=== PATIENT | male | born 2000 | race Caucasian/White ===

== ENCOUNTER 2019-06-08 10:52 | Emergency (ER) | payer OTHER ==
--- NOTE | 2019-06-08 11:07 | EDM.PDOC ---
ED HPI GENERAL MEDICAL PROBLEM - General Chief Complaint: Head Injury Stated Complaint: fall, hit head Time Seen by Provider: 06/08/19 11:07 Source of Information: Reports: Patient, Old Records (No [facility] records available) History Limitations: Reports: No Limitations - History of Present Illness INITIAL COMMENTS - FREE TEXT/NARRATIVE: The patient was brought to the emergency room via transport vehicle from [facility] for evaluation of a Workmen's Compensation injury, which occurred at about 10: 30 a.m. this morning. The patient was preparing to stand up from a squatting position hitting his right arm on the tool kit when he fell backwards for an unknown reason hitting the left side of his head with apparent brief period of loss of consciousness. He has not had a head concussion or similar injury in the past. The incidence was witnessed by 2 of his coworkers however specific details are not available at this time. No apparent history of seizure activity , stool/urine incontinence, etc. He does complain of 5/10 left lower neck muscular pain with history of previous intermittent neck pain in the past. He also complains of 2/10 left superior head discomfort from his head contusion with ice packs applied prior to arrival. He denies any right arm pain at this time. No history of recent headaches, visual changes, diplopia, change in mental status, paresthesias, neurological deficits, or other change in neurological status. The patient denies any chest pain/pressure, heart flutter, dizziness, orthostasis, orthopnea, diaphoresis, paresthesias, recent decreased exercise tolerance, or any other anginal-type symptoms. No recent history of abdominal pain, heartburn, nausea, diarrhea, melena, gross hematochezia, or any food intolerance, including fatty foods, etc.. The patient also denies any recent fever, cough, wheezing, dyspnea, etc.. Onset: Today, Sudden Onset Date: 06/08/19 Onset Time: 10:30 Duration: Constant Location: Reports: Head, Neck. Denies: Face, Chest, Abdomen, Back, Pelvis, Upper Extremity, Left, Upper Extremity, Right, Radiates to Quality: Reports: Ache, Same as Previous Episode Severity: Moderate Improves with: Reports: None Worsens with: Reports: None Context: Reports: Trauma (As above) Associated Symptoms: Denies: Confusion (No postictal sedation), Chest Pain, Cough, Diaphoresis, Fever/Chills, Headaches, Loss of Appetite, Malaise, Nausea/ Vomiting, Rash, Seizure, Shortness of Breath, Syncope, Weakness Treatments MANAGEMENT COORDINATOR: Reports: Cold Therapy Neck Pain Score (Numeric/FACES): 5 Left Posterior Head Pain Score (Numeric/FACES): 2 - Related Data Allergies Allergy/AdvReac Type Severity Reaction Status Date / Time No Known Allergies Allergy Verified 06/08/19 10:53 Home Meds: Home Meds Multivitamin [Multi-Vitamin Daily] 1 tab PO DAILY 06/08/19 [History] Past Medical History - Past Health History Medical/Surgical History: Denies Medical/Surgical History HEENT History: Reports: Impaired Vision, Other (See Below). Denies: Allergic Rhinitis, Hard of Hearing, Otitis Media Other HEENT History: Patient wears glasses Cardiovascular History: Reports: None. Denies: Arrhythmia, Hypertension, Syncope Respiratory History: Reports: None Musculoskeletal History: Reports: Arthritis, Neck Pain, Chronic. Denies: Fracture Neurological History: Reports: None. Denies: Concussion, Headaches, Chronic, Head Trauma, Migraines, Seizure, Vertigo - Past Surgical History HEENT Surgical History: Reports: None. Denies: Adenoidectomy, Myringotomy w Tube(s), Tonsillectomy Male Surgical History: Reports: None. Denies: Circumcision Social & Family History - Tobacco Use Smoking Status *Q: Never Smoker Tobacco Use Within Last Twelve Months: No Used Tobacco, but Quit: No Smoking Cessation Information Provided To Patient: No Second Hand Smoke Exposure: No Second Hand Smoke Education Provided: No - Living Situation & Occupation Living situation: Reports: Single, with Family (Parents) Occupation: Employed ([employer]) ED ROS GENERAL - Review of Systems Review Of Systems: ROS reveals no pertinent complaints other than HPI. ED EXAM, HEAD INJURY - Physical Exam Exam: See Below Exam Limited By: No Limitations General Appearance: Alert, WD/WN, No Apparent Distress Head: Normocephalic, Scalp Swelling (As below), Scalp Hematoma (For similar diameter mild subcutaneous hematoma over the superior left occipital region), Scalp Tenderness (Mild localized tenderness at site of hematoma with no crepitation, deformity, etc.). No: Scalp Lacerations, Scalp Abrasions, Scalp Ecchymosis, Garcia's Sign, Sinus Tenderness, Facial Tenderness, Raccoon Eyes Eyes: Bilateral Eye: EOMI, Normal Fundi, Normal Inspection (No nystagmus. Patient wearing prescription safety glasses), PERRL Ears: Normal External Exam, Normal Canal, Hearing Grossly Normal, Normal TMs Nose: Normal Inspection, Normal Mucousa, No Blood Throat/Mouth: Normal Inspection, Normal Lips, Normal Teeth (Lower retainer), Normal Gums, Normal Oropharynx, Normal Voice, No Airway Compromise Neck: Full Range of Motion, Normal Alignment, Tenderness (Left lower lateral cervicalmild). No: Muscle Spasm, Painful Range of Motion, Paraspinous Muscle Tender, Spinous Processes Tender Respiratory: No Respiratory Distress, Lungs Clear, Normal Breath Sounds, No Accessory Muscle Use, Chest Non-Tender. No: Pleural Rub, Retractions Cardiovascular: Normal Peripheral Pulses, Regular Rate, Rhythm, No Edema, No Gallop, No JVD, No Murmur, No Rub. No: Gallop/S3, Gallop/S4, Friction Rub GI/Abdominal Exam: Normal Bowel Sounds, Soft, Non-Tender, No Organomegaly, No Distention, No Abnormal Bruit, No Mass, Pelvis Stable. No: Guarding (Male) Exam: Deferred Rectal (Males) Exam: Deferred Back Exam: Normal Inspection, Full Range of Motion. No: CVA Tenderness (L), CVA Tenderness (R), Muscle Spasm Extremities: Normal Inspection, Normal Range of Motion, Non-Tender, No Pedal Edema, Normal Capillary Refill. 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 No evidence of facial paresis, tongue deviation, orthostasis, etc.. Excellent reverse thought processes.) Skin: Normal Color, Warm/Dry. No: Ecchymosis - [place] Coma Score Best Eye Response (Jarred): (4) Open Spontaneously Best Verbal Response ([place]): (5) Oriented Best Motor Response (Jarred): (6) Obeys Commands [place] Total: 15 Course - Vital Signs Last Recorded V/S: Last Vital Signs Temp 37.0 C 06/08/19 10:56 Pulse 86 06/08/19 10:56 Resp 18 06/08/19 10:56 BP 107/61 06/08/19 10:56 Pulse Ox 95 06/08/19 10:56 Vital Signs - 24 hr 06/08/19 10:56 Temperature [ 37.0 C Temporal] Pulse, 86 Peripheral [ Right Pulse Oximetry] Respiratory 18 Rate Blood Pressure 107/61 [Right Upper Arm] O2 Sat by Pulse 95 Oximetry - Orders/Labs/Meds Orders: Active Orders 24 hr Category Date Time Status Cervical Spine Min 4V [CR] Stat Exams 06/08/19 11:08 Ordered Skull Less 4V [CR] Stat Exams 06/08/19 11:08 Ordered Obtain Past Medical Record [OM.PC] Routine Oth 06/08/19 11:07 Active Labs: None Meds: None - Radiology Interpretation Free Text/Narrative:: X-rays of the skull, complete, shows no evidence of fracture, etc. X-rays of the cervical spine, including obliques, shows no gross abnormalities including fracture, dislocation, etc. No evidence of decreased lordosis. Odontoid view somewhat suboptimal however no obvious abnormality. Departure - Departure Time of Disposition: 11:55 Disposition: Home, Self-Care 01 Condition: Good Clinical Impression: Neck pain Head contusion Qualifiers: Encounter type: initial encounter Contusion of head detail: scalp Qualified Code(s): S00.03XA - Contusion of scalp, initial encounter - Discharge Information *PRESCRIPTION DRUG MONITORING PROGRAM REVIEWED*: Not Applicable *COPY OF PRESCRIPTION DRUG MONITORING REPORT IN PATIENT RAYRAY: Not Applicable Instructions: Head Injury, Adult, [id number], Cervical Sprain, [id number] Referrals: PCP,None [Primary Care Provider] - Forms: ED Department Discharge Additional Instructions: 1. Follow up with your regular provider in 10-14 days as needed, if symptoms persist. Bring these discharge instructions with you to that visit. 2. Tylenol 650 mg by mouth every 4 hours and/or OTC ibuprofen 2-3 tabs by mouth every 6 hours with food as directed./needed. You may stagger these medications for 48-72 hours only, which essentially means that you are receiving a pain medication about every 2 hours. 3. BenGay or equivalent, heating pad, and/or ice packs as directed. 4. Work excuse- See Form 5. Head precautions as directed-see form. 6. Immediately after this visit verify that your cellular telephone's voicemail has been activated and is empty. Also verify that your home telephone 's answering machine is operating properly and has space to receive messages. Note that it is sometimes necessary for us to be able to contact you at a later date to discuss your medical care. 7. Please remember that we are ALWAYS here for you and want to answer any questions you may have. Feel free to call the hospital any time and we call you back ANDRES. - Problem List & Annotations (1) Head contusion SNOMED Code(s): 001295353 Code(s): S00.93XA - CONTUSION OF UNSPECIFIED PART OF HEAD, INITIAL ENCOUNTER Status: Acute Priority: High Onset Date: 06/08/19 Annotation/Comment:: A trauma code was immediately considered in this patient secondary to the mechanism of injury, however based on the clinical presentation of the patient, previous history, etc. this provider did not feel that a trauma code would affect the patient's level of care and was not warranted. Minor head contusion with borderline concussion with no neurological deficits, etc. [place] work excuse and Workmen's Compensation forms were completed. Head precautions, etc. were given. Symptomatic relief for now as per discharge instructions. Qualifiers: Encounter type: initial encounter Contusion of head detail: scalp Qualified Code(s): S00.03XA - Contusion of scalp, initial encounter (2) Neck pain SNOMED Code(s): 49978880 Code(s): M54.2 - CERVICALGIA Status: Acute Priority: High Onset Date: 06/08/19 Annotation/Comment:: Mild cervical neck sprain with no significant muscle spasms by clinical exam at this time. Flexeril not indicated. Symptomatic relief as above. Previous history of intermittent neck pain as above. - Problem List Review Problem List Initiated/Reviewed/Updated: Yes - My Orders Last 24 Hours: My Active Orders 06/08/19 11:07 Obtain Past Medical Record [OM.PC] Routine 06/08/19 11:08 Cervical Spine Min 4V [CR] Stat Skull Less 4V [CR] Stat - Assessment/Plan Last 24 Hours: My Active Orders 06/08/19 11:07 Obtain Past Medical Record [OM.PC] Routine 06/08/19 11:08 Cervical Spine Min 4V [CR] Stat Skull Less 4V [CR] Stat Assessment:: As above Plan: As above. Extensive precautions were given to the patient, who is in agreement with the treatment plan. See Patient Instructions for further treatment and plan.
== END 2019-06-08 11:57 | disposition home or self-care (01) ==
LOC: LL.ED 10:52
DX: S00.03XA Contusion of scalp, initial encounter (principal); M54.2 Cervicalgia; W19.XXXA Unspecified fall, initial encounter
CPT/HCPCS: 70250; 72050; 99284-25

== ENCOUNTER 2019-10-22 17:05 | Emergency (ER) | payer BC ==
[2019-10-22] MEDS ORDERED: Famotidine 20 MG/2 ML SDV IVPUSH ONE (17:09)
[2019-10-22] MEDS ORDERED: Pantoprazole 40 MG Vial IVPUSH ONE (17:09)
[2019-10-22] MEDS ORDERED: Ondansetron 4 MG/2 ML SDV IVPUSH ONE (17:09)
--- NOTE | 2019-10-22 17:09 | EDM.PDOC ---
ED HPI GENERAL MEDICAL PROBLEM - General Chief Complaint: Abdominal Pain Stated Complaint: nausea, abd pain Time Seen by Provider: 10/22/19 17:05 Source of Information: Reports: Patient, Family (Mother), Old Records ([facility] EMR. No paper hospital chart available.) History Limitations: Reports: No Limitations - History of Present Illness INITIAL COMMENTS - FREE TEXT/NARRATIVE: Patient was brought to the emergency room via transport vehicle from [facility] for evaluation of 02/20 mid abdominal and epigastric abdominal cramping with symptoms starting at about 13:00 hours this afternoon. Note he did take Pepto- bismol about 10 minutes prior to arrival with some improvement of his symptoms. He did eat lunch without any problems earlier today with normal bowel movement at about 16:00 hours this afternoon. No recent history of diarrhea, melena, gross hematochezia, or any food intolerance, including fatty foods, etc.. He did have some mild nausea and one episode of emesis prior to arrival, however no history of gross hematuria, colic, or other UTI symptoms. The patient denies any chest pain/pressure, heart flutter, dizziness, orthostasis, orthopnea, diaphoresis, paresthesias, recent decreased exercise tolerance, or any other anginal-type symptoms. The patient also denies any recent cough, wheezing, dyspnea, etc. although a mild sore throat today with some fever and chills. Temperature was not measured with no recent use of antipyretic medication. Onset: Today, Gradual Onset Date: 10/22/19 Onset Time: 13:00 Duration: Constant, Improving Location: Reports: Abdomen. Denies: Head, Face, Neck, Chest, Back, Pelvis, Upper Extremity, Left, Upper Extremity, Right, Lower Extremity, Left, Lower Extremity, Right, Radiates to Quality: Reports: Sharp, Stabbing Severity: Moderate Improves with: Reports: Medication Worsens with: Reports: None Context: Reports: Other (As above). Denies: Sick Contact, Trauma Associated Symptoms: Reports: Fever/Chills, Nausea/Vomiting. Denies: Confusion , Chest Pain, Cough, Diaphoresis, Headaches, Loss of Appetite, Malaise, Rash, Seizure, Shortness of Breath, Syncope, Weakness Treatments DEVELOPMENTAL THERAPIST: Reports: Other Medication(s) (As above) Middle Abdominal Pain Score (Numeric/FACES): 7 - Related Data Allergies Allergy/AdvReac Type Severity Reaction Status Date / Time No Known Allergies Allergy Verified 10/22/19 17:09 Home Meds: Home Meds Multivitamin [Multi-Vitamin Daily] 1 tab PO DAILY 06/08/19 [History] Bismuth Subsalicylate [Pepto-Bismol] 1 dose PO ONETIME 10/22/19 [History] Past Medical History HEENT History: Reports: Impaired Vision, Other (See Below). Denies: Allergic Rhinitis, Hard of Hearing, Otitis Media Other HEENT History: Patient wears glasses Cardiovascular History: Reports: None. Denies: Arrhythmia, Hypertension, Syncope Respiratory History: Reports: None. Denies: Asthma, COPD Musculoskeletal History: Reports: Arthritis, Neck Pain, Chronic. Denies: Fracture Neurological History: Reports: None. Denies: Concussion, Headaches, Chronic, Head Trauma, Migraines, Seizure, Vertigo - Past Surgical History Head Surgeries/Procedures: Reports: None HEENT Surgical History: Reports: None. Denies: Adenoidectomy, Myringotomy w Tube(s), Oral Surgery, Tonsillectomy Cardiovascular Surgical History: Reports: None Respiratory Surgical History: Reports: None GI Surgical History: Reports: None. Denies: Appendectomy, Cholecystectomy, Colonoscopy, EGD, Hernia, Inguinal, Hernia Repair/Other Male Surgical History: Reports: None. Denies: Circumcision, Vasectomy Endocrine Surgical History: Reports: None Neurological Surgical History: Reports: None Musculoskeletal Surgical History: Reports: None Oncologic Surgical History: Reports: None Dermatological Surgical History: Reports: Other (See Below) Other Dermatological Surgeries/Procedures: Skin lesion taken from digit #4 of the left hand in [address] [place] [id number]. Social & Family History - Tobacco Use Smoking Status *Q: Never Smoker Tobacco Use Within Last Twelve Months: No Used Tobacco, but Quit: No Smoking Cessation Information Provided To Patient: No Second Hand Smoke Exposure: No Second Hand Smoke Education Provided: No - Alcohol Use Alcohol Use History: No Days Per Week of Alcohol Use: 0 Number of Drinks Per Day: 0 Number of Drinks Per Day Comment: No previous DWIs, problems with alcohol abuse , etc. 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 ED EXAM, GI/ABD - Physical Exam Exam: See Below Exam Limited By: No Limitations General Appearance: Alert, WD/WN, No Apparent Distress, Anxious (Mild) Eyes: Bilateral: Normal Appearance (No nystagmus), EOMI (PERRLA) Ears: Normal External Exam, Normal Canal, Hearing Grossly Normal, Normal TMs Nose: Normal Inspection, Normal Mucosa, No Blood Throat/Mouth: Normal Inspection, Normal Lips, Normal Teeth, Normal Gums, No Airway Compromise. No: Normal Oropharynx (Trace erythema in the posterior pharynx), Dysphagia, Inflammation, Perioral Cyanosis Head: Atraumatic, Normocephalic. No: Facial Swelling, Facial Tenderness, Sinus Tenderness Neck: Normal Inspection, Supple, Non-Tender, Full Range of Motion. No: Lymphadenopathy (L), Lymphadenopathy (R), Thyromegaly Respiratory/Chest: No Respiratory Distress, Lungs Clear, Normal Breath Sounds, No Accessory Muscle Use, Chest Non-Tender Cardiovascular: Normal Peripheral Pulses, Regular Rate, Rhythm, No Edema, No Gallop, No JVD, No Murmur, No Rub. No: Gallop/S3, Gallop/S4, Friction Rub GI/Abdominal Exam: No Organomegaly, No Distention, No Abnormal Bruit, No Mass, Pelvis Stable, Tender (Minimal mid abdominal palpation pain), Abnormal Bowel Sounds (Mild to moderate diffuse increased bowel sounds [id number] in nature). No: Guarding, Rigid, Rebound (Male) Exam: Deferred Rectal (Males) Exam: Deferred Back Exam: Normal Inspection, Full Range of Motion. No: CVA Tenderness (L), CVA Tenderness (R), Muscle Spasm Extremities: Normal Inspection, Normal Range of Motion, Non-Tender, No Pedal Edema, Normal Capillary Refill. No: Ivett's Sign Neurological: Alert, Oriented, CN II-XII Intact, Normal Cognition, Normal Gait, Normal Reflexes (Negative Babinski's), No Motor/Sensory Deficits Psychiatric: Anxious (Mild), Depressed Mood (Borderline) Skin Exam: Warm, Dry, Intact, Normal Color, No Rash. No: Diaphoretic, Ecchymosis, Jaundice, Pallor, Petechiae, Wound/Incision Lymphatic: No Adenopathy Course - Vital Signs Last Recorded V/S: Last Vital Signs Temp 37.1 C 10/22/19 19:18 Pulse 74 10/22/19 20:05 Resp 16 10/22/19 20:05 BP 119/66 10/22/19 20:05 Pulse Ox 99 10/22/19 20:05 Vital Signs - 24 hr 10/22/19 10/22/19 10/22/19 17:07 17:18 17:33 Temperature [ 37.3 C Temporal] Pulse, 74 79 74 Peripheral [ Left Pulse Oximetry] Respiratory 20 Rate Blood Pressure 135/81 120/68 119/66 [Left Upper Arm ] O2 Sat by Pulse 97 97 98 Oximetry 10/22/19 10/22/19 10/22/19 17:48 18:04 18:18 Temperature [ Temporal] Pulse, 72 70 74 Peripheral [ Left Pulse Oximetry] Respiratory Rate Blood Pressure 108/72 108/63 125/77 [Left Upper Arm ] O2 Sat by Pulse 98 98 100 Oximetry 10/22/19 10/22/19 10/22/19 18:33 18:48 19:03 Temperature [ Temporal] Pulse, 74 72 77 Peripheral [ Left Pulse Oximetry] Respiratory Rate Blood Pressure 117/71 121/66 111/68 [Left Upper Arm ] O2 Sat by Pulse 100 99 99 Oximetry 10/22/19 10/22/19 10/22/19 19:18 19:35 19:40 Temperature [ 37.1 C Temporal] Pulse, 75 76 77 Peripheral [ Left Pulse Oximetry] Respiratory 18 18 16 Rate Blood Pressure 114/72 119/72 128/78 [Left Upper Arm ] O2 Sat by Pulse 99 100 99 Oximetry 10/22/19 20:05 Temperature [ Temporal] Pulse, 74 Peripheral [ Left Pulse Oximetry] Respiratory 16 Rate Blood Pressure 119/66 [Left Upper Arm ] O2 Sat by Pulse 99 Oximetry - Orders/Labs/Meds Orders: Active Orders 24 hr Category Date Time Status Communication Order [RC] ROUTINE Care 10/22/19 20:18 Ordered Peripheral IV Care [RC] . DIRECTED Care 10/22/19 17:10 Active Nothing Per Oral Diet [DIET] Diet 10/22/19 Breakfast Active Abdomen Pelvis w Cont [CT] Stat Exams 10/22/19 17:50 Stop Req Abdomen Pelvis wo Cont [CT] Stat Exams 10/22/19 18:30 Ordered Abdomen Series w Chest 1V [CR] Stat Exams 10/22/19 17:09 Taken CULTURE STREP A CONFIRMATION [RM] Stat Lab 10/22/19 17:15 Results CULTURE URINE [RM] Stat Lab 10/22/19 18:14 Received STREP SCRN A RAPID W CULT CONF [RM] Stat Lab 10/22/19 17:15 Results Sodium Chloride 0.9% [Saline Flush] Med 10/22/19 17:09 Active 10 ml FLUSH ASDIRECTED PRN Isolation [COMM] Routine Oth 10/22/19 17:11 Active Obtain Past Medical Record [OM.PC] Urgent Oth 10/22/19 17:09 Active Peripheral IV Insertion Adult [OM.PC] Stat Oth 10/22/19 17:09 Ordered Resuscitation Status Stat Resus Stat 10/22/19 17:09 Ordered Medication Orders Sodium Chloride (Saline Flush) 10 ml FLUSH ASDIRECTED PRN PRN Reason: Keep Vein Open Last Admin: 10/22/19 20:08 Dose: 10 ml Admin: 10/22/19 18:47 Dose: 10 ml Admin: 10/22/19 17:26 Dose: 10 ml Labs: Laboratory Tests 10/22/19 10/22/19 10/22/19 Range/Units 17:15 17:15 17:15 WBC 11.0 H (4.0-10.2) K/uL RBC 5.49 H (4.33-5.41) M/uL Hgb 16.0 (13.1-16.8) g/dL Hct 46.8 (39.0-49.0) % MCV 85.2 (84.0-98.0) fL MCH 29.1 (28.2-33.3) pg MCHC 34.2 (31.7-36.0) g/dL RDW 13.0 (11.2-14.1) % Plt Count 183 (150-350) K/uL Neut % (Auto) 79.5 (45.0-80.0) % Lymph % (Auto) 12.4 (10.0-50.0) % [place] % (Auto) 7.6 (2.0-14.0) % Eos % (Auto) 0.3 (0.0-5.0) % Baso % (Auto) 0.2 (0.0-2.0) % Neut # (Auto) 8.76 H (1.40-7.00) K/uL Lymph # (Auto) 1.37 (0.50-3.50) K/uL [place] # (Auto) 0.84 (0.00-1.00) K/uL Eos # (Auto) 0.03 (0.00-0.50) K/uL Baso # (Auto) 0.02 (0.00-0.20) K/uL PT 10.7 (9.5-12.0) SEC INR 1.1 APTT 25.0 (24.5-32.8) SEC Sodium (136-145) mmol/L Potassium (3.5-5.1) mmol/L Chloride (98-107) mmol/L Carbon Dioxide (21.0-32.0) mmol/L BUN (7-18) mg/dL Creatinine (0.51-1.17) mg/dL Est Cr Clr Drug Dosing mL/min Estimated GFR (MDRD) mL/min Glucose (74-106) mg/dL Lactic Acid (0.4-2.0) mmol/L Uric Acid (2.6-7.2) mg/dL Calcium (8.5-10.1) mg/dL Magnesium (1.8-2.4) mg/dL Total Bilirubin (0.2-1.0) mg/dL AST (15-37) U/L ALT (12-78) U/L Alkaline Phosphatase (46-116) IU/L Total Protein (6.4-8.2) g/dL Albumin (3.4-5.0) g/dL Amylase 33 (25-115) U/L Lipase (73-393) U/L Specimen Type Urine Color Urine Appearance Urine pH (5.0-9.0) Ur Specific [place] (1.005-1.030) Urine Protein (NEGATIVE) mg/dL Urine Glucose (UA) (NEGATIVE) mg/dL Urine Ketones (NEGATIVE) mg/dL Urine Occult Blood (NEGATIVE) Urine Nitrite (NEGATIVE) Urine Bilirubin (NEGATIVE) Urine Urobilinogen (0.2-1.0) E.U./dL Ur Leukocyte Esterase (NEGATIVE) Urine RBC /HPF Urine WBC /HPF Ur Epithelial Cells /LPF Urine Bacteria (NONE TO FEW) /HPF 10/22/19 10/22/19 10/22/19 Range/Units 17:15 17:15 18:14 WBC (4.0-10.2) K/uL RBC (4.33-5.41) M/uL Hgb (13.1-16.8) g/dL Hct (39.0-49.0) % MCV (84.0-98.0) fL MCH (28.2-33.3) pg MCHC (31.7-36.0) g/dL RDW (11.2-14.1) % Plt Count (150-350) K/uL Neut % (Auto) (45.0-80.0) % Lymph % (Auto) (10.0-50.0) % [place] % (Auto) (2.0-14.0) % Eos % (Auto) (0.0-5.0) % Baso % (Auto) (0.0-2.0) % Neut # (Auto) (1.40-7.00) K/uL Lymph # (Auto) (0.50-3.50) K/uL [place] # (Auto) (0.00-1.00) K/uL Eos # (Auto) (0.00-0.50) K/uL Baso # (Auto) (0.00-0.20) K/uL PT (9.5-12.0) SEC INR APTT (24.5-32.8) SEC Sodium 143 (136-145) mmol/L Potassium 4.0 (3.5-5.1) mmol/L Chloride 104 (98-107) mmol/L Carbon Dioxide 28.3 (21.0-32.0) mmol/L BUN 10 (7-18) mg/dL Creatinine 1.01 (0.51-1.17) mg/dL Est Cr Clr Drug Dosing 105.66 mL/min Estimated GFR (MDRD) > 60 mL/min Glucose 104 (74-106) mg/dL Lactic Acid 1.4 (0.4-2.0) mmol/L Uric Acid 5.0 (2.6-7.2) mg/dL Calcium 9.0 (8.5-10.1) mg/dL Magnesium 2.0 (1.8-2.4) mg/dL Total Bilirubin 0.4 (0.2-1.0) mg/dL AST 17 (15-37) U/L ALT 24 (12-78) U/L Alkaline Phosphatase 92 (46-116) IU/L Total Protein 7.6 (6.4-8.2) g/dL Albumin 4.8 (3.4-5.0) g/dL Amylase (25-115) U/L Lipase 62 L (73-393) U/L Specimen Type Urinvoid Urine Color Yellow Urine Appearance Clear Urine pH 6.0 (5.0-9.0) Ur Specific [place] 1.020 (1.005-1.030) Urine Protein Negative (NEGATIVE) mg/dL Urine Glucose (UA) Negative (NEGATIVE) mg/dL Urine Ketones Trace H (NEGATIVE) mg/dL Urine Occult Blood Large H (NEGATIVE) Urine Nitrite Negative (NEGATIVE) Urine Bilirubin Negative (NEGATIVE) Urine Urobilinogen 0.2 (0.2-1.0) E.U./dL Ur Leukocyte Esterase Negative (NEGATIVE) Urine RBC 50-75 H /HPF Urine WBC Not seen /HPF Ur Epithelial Cells Occasional /LPF Urine Bacteria Occasional (NONE TO FEW) /HPF Urine specimen set up for culture and sensitivity Microbiology 10/22/19 17:15 Group A Streptococcus Rapid Screen - Final Throat NEGATIVE STREP A SCREEN REFERENCE RANGE: NEGATIVE 10/22/19 17:15 Influenza Type A Antigen Screen - Final Nasal, Left NEGATIVE INFLUENZA A VIRUS AG REFERENCE RANGE: NEGATIVE Influenza Type B Antigen Screen - Final NEGATIVE INFLUENZA B VIRUS AG REFERENCE RANGE: NEGATIVE Meds: Medications Generic Name Dose Route Start Last Admin Trade Name Freq PRN Reason Stop Dose Admin Sodium Chloride 10 ml 10/22/19 17:09 10/22/19 20:08 Saline Flush FLUSH 10 ml ASDIRECTED PRN Administration Keep Vein Open Discontinued Medications Generic Name Dose Route Start Last Admin Trade Name Freq PRN Reason Stop Dose Admin Famotidine 40 mg 10/22/19 17:09 10/22/19 17:23 Pepcid IVPUSH 10/22/19 17:10 40 mg ONETIME ONE Administration Lactated Ringer's 1,000 mls @ 999 mls/hr 10/22/19 18:44 10/22/19 18:47 Ringers, Lactated IV 10/22/19 19:44 999 mls/hr .BOLUS ONE Administration Iopamidol 100 ml 10/22/19 18:15 10/22/19 18:54 Isovue-300 (61%) IVPUSH 10/22/19 18:16 Not Given ONETIME ONE Ondansetron HCl 4 mg 10/22/19 17:09 10/22/19 17:20 Zofran IVPUSH 10/22/19 17:10 4 mg ONETIME ONE Administration Pantoprazole Sodium 40 mg 10/22/19 17:09 10/22/19 17:23 Protonix Iv IVPUSH 10/22/19 17:10 40 mg ONETIME ONE Administration - Radiology Interpretation Free Text/Narrative:: Acute abdominal x-rays shows moderate diffuse increased bowel gaseous pattern with no free air or direct evidence of ileus or obstruction. No cardiomegaly CHF, pulmonary infiltrates, pneumothorax, etc. Telephone consultation at 19:14 hours with the radiology department at [facility]. Preliminary verbal report of CT scan of the abdomen and pelvis without contrast indicates mild inflammatory changes around the appendix and some free fluid consistent with possible beginning appendicitis. Bilateral mild nephrolithiasis without evidence of true urolithiasis, hydronephrosis, etc. CT Results Date: 10/22/19 CT Results Time: 19:24 Departure - Departure Time of Disposition: 20:25 Disposition: DC/Tfer to [facility] 02 Condition: Good Clinical Impression: Nephrolithiasis, Abdominal pain - Discharge Information *PRESCRIPTION DRUG MONITORING PROGRAM REVIEWED*: Not Applicable *COPY OF PRESCRIPTION DRUG MONITORING REPORT IN PATIENT RAYRAY: Not Applicable Referrals: PCP,Unknown [Primary Care Provider] - Forms: ED Department Discharge, Interfacility Transfer EMTALA Care Plan Goals: 1. Your mother is to drive you to [facility] for direct admission. 2. STRICT nothing to eat or drink until otherwise directed by your [place] physicians 3. Have [place] physicians complete your [place] work excuse form. Sepsis Event Note - Evaluation Sepsis Screening Result: No Definite Risk - Focused Exam Vital Signs: Vital Signs Temp Pulse Resp BP Pulse Ox 10/22/19 20:05 74 16 119/66 99 10/22/19 19:40 77 16 128/78 99 10/22/19 19:35 76 18 119/72 100 10/22/19 19:18 37.1 C 75 18 114/72 99 10/22/19 19:03 77 111/68 99 10/22/19 18:48 72 121/66 99 10/22/19 18:33 74 117/71 100 10/22/19 18:18 74 125/77 100 10/22/19 18:04 70 108/63 98 10/22/19 17:48 72 108/72 98 10/22/19 17:33 74 119/66 98 10/22/19 17:18 79 120/68 97 10/22/19 17:07 37.3 C 74 20 135/81 97 Date Exam was Performed: 10/22/19 Time Exam was Performed: 20:21 - Problem List & Annotations (1) Abdominal pain SNOMED Code(s): 54187265 Code(s): R10.9 - UNSPECIFIED ABDOMINAL PAIN Status: Acute Priority: High Onset Date: 10/22/19 Annotation/Comment:: Borderline positive CT scan of the abdomen and pelvis for appendicitis as above. Telephone consultation at 19: [address] Reid, general surgeon [facility] in [place], who does accept the patient for direct admission, with no further treatment recommendations given. He is in agreement with initiation of antibiotic therapy in their facility in order to facilitate hospital transfer. Private automobile transfer with the patient's mother driving him to [place]. They were counseled on the importance of remaining strict nothing by mouth with last solid intake at about 13:00 hours this afternoon. 1 L lactated Ringer's given in the emergency room by IV bolus. Patient discharged with saline lock. Qualifiers: Abdominal location: periumbilical Qualified Code(s): R10.33 - Periumbilical pain (2) Nephrolithiasis SNOMED Code(s): 60538260 Code(s): N20.0 - CALCULUS OF KIDNEY Status: Acute Priority: Medium Onset Date: 10/22/19 Annotation/Comment:: Incidental bilateral nephrolithiasis without acute urolithiasis, etc. despite current moderate microscopic hematuria. Urine specimen set up for culture and sensitivity. No colic, gross hematuria, or other UTI symptoms. - Problem List Review Problem List Initiated/Reviewed/Updated: Yes - My Orders Last 24 Hours: My Active Orders 10/22/19 17:09 Abdomen Series w Chest 1V [CR] Stat Sodium Chloride 0.9% [Saline Flush] 10 ml FLUSH ASDIRECTED PRN Obtain Past Medical Record [OM.PC] Urgent Peripheral IV Insertion Adult [OM.PC] Stat Resuscitation Status Stat 10/22/19 17:10 Peripheral IV Care [RC] . DIRECTED 10/22/19 17:11 Isolation [COMM] Routine 10/22/19 17:15 CULTURE STREP A CONFIRMATION [RM] Stat STREP SCRN A RAPID W CULT CONF [RM] Stat 10/22/19 17:50 Abdomen Pelvis w Cont [CT] Stat 10/22/19 18:14 CULTURE URINE [RM] Stat 10/22/19 18:30 Abdomen Pelvis wo Cont [CT] Stat 10/22/19 20:18 Communication Order [RC] ROUTINE 10/22/19 Breakfast Nothing Per Oral Diet [DIET] - Assessment/Plan Last 24 Hours: My Active Orders 10/22/19 17:09 Abdomen Series w Chest 1V [CR] Stat Sodium Chloride 0.9% [Saline Flush] 10 ml FLUSH ASDIRECTED PRN Obtain Past Medical Record [OM.PC] Urgent Peripheral IV Insertion Adult [OM.PC] Stat Resuscitation Status Stat 10/22/19 17:10 Peripheral IV Care [RC] . DIRECTED 10/22/19 17:11 Isolation [COMM] Routine 10/22/19 17:15 CULTURE STREP A CONFIRMATION [RM] Stat STREP SCRN A RAPID W CULT CONF [RM] Stat 10/22/19 17:50 Abdomen Pelvis w Cont [CT] Stat 10/22/19 18:14 CULTURE URINE [RM] Stat 10/22/19 18:30 Abdomen Pelvis wo Cont [CT] Stat 10/22/19 20:18 Communication Order [RC] ROUTINE 10/22/19 Breakfast Nothing Per Oral Diet [DIET] Assessment:: As above Plan: As above. Extensive precautions were given to the patient and his mother, who are in agreement with the treatment plan. Private automobile transfer to [facility] in [place] as above. Extensive precautions were given to the patient, who is in agreement with the treatment plan.
[2019-10-22] MEDS: Sodium Chloride 0.9% 10 ML Syringe FLUSH PRN ×3 (17:26→20:08)
[2019-10-22 17:38] LABS: CHLORIDE,CL 104 mmol/L (98-107); SODIUM,NA 143 mmol/L (136-145)
[2019-10-22] MEDS ORDERED: Iopamidol 612 MG/ML 100 ML Bottle IVPUSH ONE (18:15)
[2019-10-22] MEDS ORDERED: Lactated Ringers 1,000 ML IV ONE (18:44)
== END 2019-10-22 20:25 ==
LOC: LL.ED 17:05
DX: N20.0 Calculus of kidney (principal)
CPT/HCPCS: 36415; 74022; 74176; 80053; 81001; 82150; 83605; 83690; 83735; 84550; 85025; 85610; 85730; 87081; 87086; 87430; 87804; 96361; 96374; 96375; 99285-25; C9113; J2405; J3490; J7120

== ENCOUNTER 2021-11-21 23:54 | Inpatient (IN) | payer BC ==
[2021-11-21] MEDS ORDERED: Lactated Ringers 1,000 ML IV ONE (23:56)
[2021-11-21] MEDS ORDERED: Morphine 2 MG/ML SYRINGE IVPUSH ONE (23:58)
[2021-11-22] MEDS ORDERED: Ondansetron 4 MG/2 ML SDV ONE (00:12)
[2021-11-22 00:31] LABS: ANION GAP 9.5 meq/L (7-15); CHLORIDE,CL 106 mmol/L (98-107); SODIUM,NA 145 mmol/L (136-145)
[2021-11-22] MEDS ORDERED: Lactated Ringers 1,000 ML IV ONE (01:00)
[2021-11-22] MEDS ORDERED: Morphine 2 MG/ML SYRINGE IVPUSH ONE (01:00)
[2021-11-22] MEDS: Sodium Chloride 0.9% 10 ML Syringe FLUSH PRN ×3 (01:10→03:26)
[2021-11-22] MEDS ORDERED: Acetaminophen 325 MG Tab PO PRN (02:20)
[2021-11-22] MEDS ORDERED: oxyCODONE 5 MG Tab PO PRN (02:24)
[2021-11-22] MEDS ORDERED: Bismuth Subsalicylate 262 MG/15 ML Susp 236 ML Bottle PO PRN (02:26)
[2021-11-22] MEDS ORDERED: Lactated Ringers 1,000 ML IV SCH ×2 (02:30→10:15)
[2021-11-22] MEDS: oxyCODONE 5 MG Tab PO PRN ×2 (02:52→08:25)
[2021-11-22] MEDS: Ondansetron 4 MG/2 ML SDV IVPUSH SCH ×2 (03:26→08:25)
[2021-11-22] MEDS: Morphine 2 MG/ML SYRINGE IVPUSH SCH ×4 (03:54→08:25)
[2021-11-22 07:44] LABS: ANION GAP 7.9 meq/L (7-15); CHLORIDE,CL 106 mmol/L (98-107); SODIUM,NA 142 mmol/L (136-145)
[2021-11-22 08:30] VITALS: PULSE 74
[2021-11-22] MEDS ORDERED: Morphine 2 MG/ML SYRINGE IVPUSH PRN (09:00)
[2021-11-22] MEDS ORDERED: Ondansetron 4 MG Tab.DIS PO PRN (10:00)
[2021-11-22] MEDS ORDERED: Acetaminophen/HYDROcodone 325-5 MG Tab PO PRN (10:00)
[2021-11-22] MEDS ORDERED: Tamsulosin 0.4 MG Cap.ER PO ONE (10:04)
[2021-11-22] MEDS ORDERED: Sodium Chloride 0.9% 1,000 ML IV SCH (10:15)
[2021-11-22 12:07] VITALS: BP 118/66
[2021-11-22 14:36] LABS: ANION GAP 6.3 meq/L (7-15); CHLORIDE,CL 107 mmol/L (98-107); SODIUM,NA 143 mmol/L (136-145)
[2021-11-22] MEDS ORDERED: Amitriptyline 25 MG Tab PO SCH (20:00)
== END 2021-11-22 16:00 | disposition home or self-care (01) | DRG 469 ==
LOC: LL.ED 23:54 → LL.MS 11-22 01:50
PROVIDERS: ADMIT Hospitalist; ATTEND Hospitalist
DX: N17.9 Acute kidney failure, unspecified (principal); N20.0 Calculus of kidney; N13.0 Hydronephrosis with ureteropelvic junction obstruction; K58.9 Irritable bowel syndrome, unspecified; M19.90 Unspecified osteoarthritis, unspecified site; G89.29 Other chronic pain; M54.2 Cervicalgia; Z79.52 Long term (current) use of systemic steroids; Z79.899 Other long term (current) drug therapy; Z90.49 Acquired absence of other specified parts of digestive tract
CPT/HCPCS: 36415; 74176; 80048; 80053; 81001; 83605; 83690; 83735; 85025; 85027; 86140; 96374; 96376; 99285-25; A9270-GY; J2270; J2405; J3490; J7120